=== PATIENT | female | born 1960 | race Caucasian/White ===

== ENCOUNTER → 2021-02-18 | Day surgery (SDC) | payer BC ==
[2021-02-17 13:33] LABS: ANION GAP 18.1 mmol/L (8-16); CALCIUM 9.5 mg/dL (8.4-10.2); CREATININE, SERUM 1.32 mg/dL (0.57-1.11); POTASSIUM 4.1 mmol/L (3.5-5.1)
[~2021-02-18] MED LIST: BENAZEPRIL-HCT1 EAC2 PO; BUPIVACAINE HCL 0.5% INJ 30 ML VIAL INJ ONE; BUPROPION XL150 MG PO; DEXAMETHASONE SOD PHOS INJ 4 MG/ML VIAL ONE; EPHEDRINE SULFATE INJ 50 MG/ML VIAL ONE; FAMOTIDINE 20 MG/2 ML VIAL IV ONE; FENOFIBRATE145 MG PO; FENTANYL CITRATE/PF 100MCG/2 ML INJ ONE; KETOROLAC TROMETHAMINE 30 MG/ML VIAL ONE; LIDOCAINE HCL 2% LOCAL INJ 5 ML SDV VIAL INJ ONE; METOCLOPRAMIDE HCL 10 MG/2ML VIAL ONE; MIDAZOLAM HCL 2 MG/2 ML VIAL ONE; ONDANSETRON HCL INJ 2MG/ML 2ML 2 MG/ML VIAL ONE; PHENYLEPHRINE HCL 1% 10 MG/ML VIAL ONE; POVIDONE IODINE 0.05% 0.05 % ML PO ONE; PROPOFOL IV EMULSION 10 MG/ML 20 ML VIAL ONE; SEVOFLURANE INHAL SOLN 250 ML PEN BTL ONE; SODIUM CHLORIDE 0.9% 50ML 50 ML ONE
[2021-02-18 10:05] VITALS: BP 132/70
== END | disposition home or self-care (01) ==
LOC: OR 05:52
PROVIDERS: ATTEND Podiatrist Foot & Ankle Surgery
DX: S92.352A Displaced fracture of fifth metatarsal bone, left foot, initial encounter for closed fracture (principal); Z88.5 Allergy status to narcotic agent; Z88.8 Allergy status to other drugs, medicaments and biological substances; Z01.810 Encounter for preprocedural cardiovascular examination; Z01.812 Encounter for preprocedural laboratory examination; I10 Essential (primary) hypertension; E78.5 Hyperlipidemia, unspecified; Z86.16 Personal history of COVID-19
CPT/HCPCS: 28485; 36415; 80048; 93005; J0690; J1100; J1885; J2001; J2250; J2370; J2405; J2704; J2765; J3010

== ENCOUNTER → 2021-04-01 | Outpatient (CLI) | payer BC ==
[~2021-04-01] MED LIST changes: -BUPIVACAINE HCL 0.5% INJ 30 ML VIAL INJ ONE; -DEXAMETHASONE SOD PHOS INJ 4 MG/ML VIAL ONE; -EPHEDRINE SULFATE INJ 50 MG/ML VIAL ONE; -FAMOTIDINE 20 MG/2 ML VIAL IV ONE; -FENTANYL CITRATE/PF 100MCG/2 ML INJ ONE; -KETOROLAC TROMETHAMINE 30 MG/ML VIAL ONE; -LIDOCAINE HCL 2% LOCAL INJ 5 ML SDV VIAL INJ ONE; -METOCLOPRAMIDE HCL 10 MG/2ML VIAL ONE; -MIDAZOLAM HCL 2 MG/2 ML VIAL ONE; -ONDANSETRON HCL INJ 2MG/ML 2ML 2 MG/ML VIAL ONE; -PHENYLEPHRINE HCL 1% 10 MG/ML VIAL ONE; -POVIDONE IODINE 0.05% 0.05 % ML PO ONE; -PROPOFOL IV EMULSION 10 MG/ML 20 ML VIAL ONE; -SEVOFLURANE INHAL SOLN 250 ML PEN BTL ONE; -SODIUM CHLORIDE 0.9% 50ML 50 ML ONE
== END ==
LOC: RAD 13:53
PROVIDERS: ATTEND Podiatrist Foot & Ankle Surgery
DX: I82.412 Acute embolism and thrombosis of left femoral vein (principal); I82.432 Acute embolism and thrombosis of left popliteal vein; I82.442 Acute embolism and thrombosis of left tibial vein
CPT/HCPCS: 93971

== ENCOUNTER 2022-04-04 11:21 | Inpatient (IN) | payer BC ==
[~2022-04-04] VITALS: Ht 170.2 cm; Wt 100.9 kg
[2022-04-04] MEDS ORDERED: SODIUM CHLORIDE 0.9% 1000ML 1,000 ML IV STA (12:04)
[2022-04-04 12:36] LABS: BASOPHILS # (AUTO) 0.1 (0.0-0.1); BASOPHILS % 0.5 % (0.0-1.0); EOSINOPHILS # (AUTO) 0.2 (0.0-0.4); EOSINOPHILS % 1.6 % (0.0-6.0); HEMATOCRIT 30.8 % (34.2-44.1); HEMOGLOBIN 9.6 g/dL (12.0-16.0); LYMPHOCYTES # (AUTO) 2.4 (1.0-3.2); LYMPHOCYTES % 15.5 % (18.0-39.1); MEAN CORPUSCULAR HEMOGLOBIN 26.6 pg (28-32); MEAN CORPUSCULAR HGB CONC 31.2 g/dL (31-35); MEAN CORPUSCULAR VOLUME 85.3 fL (81-99); MONOCYTES # (AUTO) 0.8 (0.2-0.8); MONOCYTES % 5.4 % (4.4-11.3); NEUTROPHILS # (AUTO) 11.6 (2.1-6.9); NEUTROPHILS % 76.6 % (38.7-80.0); PLATELET COUNT 717 x10e3/uL (140-360); RED BLOOD COUNT 3.61 x10e6/uL (3.6-5.1); RED CELL DISTRIBUTION WIDTH 13.9 % (11.7-14.4)
[2022-04-04 12:47] LABS: CLARITY,URINE CLEAR (CLEAR); COLOR,URINE YELLOW (YELLOW); KETONES,URINE NEGATIVE (NEGATIVE); LEUKOCYTE ESTERASE ,URINE NEGATIVE (NEGATIVE); NITRITE,URINE NEGATIVE (NEGATIVE); PROTEIN,URINE DIPSTICK NEGATIVE (NEGATIVE); URINE UROBILINOGEN 0.2 mg/dL (0.2 - 1)
[2022-04-04 12:48] LABS: INR 1.03; PROTHROMBIN TIME 14.4 seconds (11.9-14.5)
[2022-04-04 12:49] LABS: PARTIAL THROMBOPLASTIN TIME 36.8 seconds (23.8-35.5)
[2022-04-04 12:53] LABS: BACTERIA,URINE MODERATE /HPF; EPITHELIAL CELLS,URINE FEW /LPF
[2022-04-04 12:56] LABS: ALANINE AMINOTRANSFERASE 17 IU/L (0-55); ALBUMIN 2.9 g/dL (3.5-5.0); ALBUMIN/GLOBULIN RATIO 0.6 (0.8-2.0); ALKALINE PHOSPHATASE 90 IU/L (40-150); ANION GAP 19.3 mmol/L (8-16); BLOOD UREA NITROGEN 23 mg/dL (7-26); BUN/CREATININE RATIO 17 (6-25); CALCIUM 9.3 mg/dL (8.4-10.2); CARBON DIOXIDE 23 mmol/L (22-29); CHLORIDE 98 mmol/L (98-107); CREATINE KINASE 44 IU/L (29-168); CREATININE, SERUM 1.37 mg/dL (0.57-1.11); GLUCOSE 109 mg/dL (74-118); LIPASE 26 U/L (8-78); MAGNESIUM 2.1 MG/DL (1.3-2.1); POTASSIUM 3.3 mmol/L (3.5-5.1); SODIUM 137 mmol/L (136-145)
[2022-04-04 13:16] LABS: THYROID STIMULATING HORMONE 0.704 uIU/mL (0.350-4.940)
[2022-04-04] MEDS ORDERED: IOPAMIDOL 300MG/ML 100 ML INFUS..BTL IV ONE (13:20)
[2022-04-04] MEDS: D5NS/KCL 20MEQ 1,000 ML IV SCH (18:15)
[2022-04-04] MEDS ORDERED: Morphine 4mg INJECTION 4 MG/ML INJ IV PRN (18:15)
[2022-04-04] MEDS ORDERED: ONDANSETRON HCL INJ 2MG/ML 2ML 2 MG/ML VIAL IV PRN (18:15)
[2022-04-04 22:10] VITALS: BP 139/67
[2022-04-04 22:35] VITALS: BP 139/67
[2022-04-04] MEDS: ACETAMINOPHEN 325 MG TAB PO PRN (23:29)
[2022-04-05] VITALS (9 sets, daily range): BP systolic 124–149; BP diastolic 66–76
[2022-04-05 01:05] LABS: TOTAL IRON BINDING CAPACITY 335 ug/dL (261-478); TRANSFERRIN 239 mg/dL (180-382)
[2022-04-05 01:28] LABS: % IRON SATURATION 1 % (15-50); IRON < 5 ug/dL (50-170)
[2022-04-05 05:40] LABS: BASOPHILS # (AUTO) 0.1 (0.0-0.1); BASOPHILS % 0.7 % (0.0-1.0); EOSINOPHILS # (AUTO) 0.3 (0.0-0.4); HEMATOCRIT 27.2 % (34.2-44.1); HEMOGLOBIN 8.7 g/dL (12.0-16.0); LYMPHOCYTES # (AUTO) 2.5 (1.0-3.2); LYMPHOCYTES % 18.5 % (18.0-39.1); MEAN CORPUSCULAR HEMOGLOBIN 26.5 pg (28-32); MEAN CORPUSCULAR VOLUME 82.9 fL (81-99); MONOCYTES % 7.6 % (4.4-11.3); NEUTROPHILS # (AUTO) 9.3 (2.1-6.9); NEUTROPHILS % 70.5 % (38.7-80.0); PLATELET COUNT 656 x10e3/uL (140-360); RED BLOOD COUNT 3.28 x10e6/uL (3.6-5.1)
[2022-04-05 06:24] LABS: ALBUMIN 2.4 g/dL (3.5-5.0); ALBUMIN/GLOBULIN RATIO 0.5 (0.8-2.0); ANION GAP 15.2 mmol/L (8-16); CALCIUM 8.6 mg/dL (8.4-10.2); CREATININE, SERUM 0.97 mg/dL (0.57-1.11); POTASSIUM 3.2 mmol/L (3.5-5.1)
[2022-04-05 06:52] LABS: CREATINE KINASE MB 0.6 ng/mL (0-5.0)
[2022-04-05] MEDS: D5NS/KCL 20MEQ 1,000 ML IV SCH (10:35)
[2022-04-05] MEDS: ACETAMINOPHEN 325 MG TAB PO PRN (11:44)
[2022-04-05 14:08] LABS: CREATINE KINASE 40 IU/L (29-168)
[2022-04-05] MEDS ORDERED: PEG (High)/E-LYTE SOLN 4,000 ML BTL PO ONE (15:40)
[2022-04-05 20:30] LABS: CREATINE KINASE MB 0.5 ng/mL (0-5.0)
[2022-04-05] MEDS ORDERED: BISACODYL 5 MG TAB EC PO ONE ×2 (23:15→23:50)
[2022-04-06] VITALS (8 sets, daily range): BP systolic 129–152; BP diastolic 61–81
[2022-04-06] MEDS: ACETAMINOPHEN 325 MG TAB PO PRN (06:55)
[2022-04-06] MEDS ORDERED: IRON SUCROSE 100 MG in SODIUM CHLORIDE 0.9% 100 ML IV SCH (09:00)
[2022-04-06 11:53] LABS: ANION GAP 17.5 mmol/L (8-16); CALCIUM 8.8 mg/dL (8.4-10.2); CREATININE, SERUM 0.83 mg/dL (0.57-1.11); POTASSIUM 3.5 mmol/L (3.5-5.1)
[2022-04-06] MEDS ORDERED: PROPOFOL IV EMULSION 10 MG/ML 20 ML VIAL ONE (13:14)
[2022-04-06] MEDS ORDERED: GLUCAGON FOR INJ 1 MG VIAL ONE (13:14)
[2022-04-06] MEDS ORDERED: HYOSCYAMINE SULFATE 0.5 MG/ML INJ ONE (13:14)
[2022-04-06] MEDS ORDERED: METOCLOPRAMIDE HCL 10 MG/2ML VIAL ONE (13:14)
[2022-04-06] MEDS ORDERED: MIDAZOLAM HCL 2 MG/2 ML VIAL ONE (13:34)
[2022-04-06] MEDS ORDERED: FENTANYL CITRATE/PF 100MCG/2 ML INJ ONE (13:34)
[2022-04-07 04:00] VITALS: BP 138/69
[2022-04-07 08:35] VITALS: BP 138/80
[2022-04-07] MEDS ORDERED: ONDANSETRON HCL 4 MG ORAL DISINTEGRATING TAB PO PRN (08:45)
[2022-04-07] MEDS ORDERED: PANTOPRAZOLE SOD 40 MG TABEC PO SCH (09:00)
[2022-04-07 09:20] VITALS: BP 138/80
[2022-04-07 11:58] LABS: BASOPHILS # (AUTO) 0.1 (0.0-0.1); BASOPHILS % 0.6 % (0.0-1.0); EOSINOPHILS # (AUTO) 0.3 (0.0-0.4); EOSINOPHILS % 1.8 % (0.0-6.0); HEMATOCRIT 30.7 % (34.2-44.1); HEMOGLOBIN 9.3 g/dL (12.0-16.0); LYMPHOCYTES # (AUTO) 2.8 (1.0-3.2); LYMPHOCYTES % 17.1 % (18.0-39.1); MEAN CORPUSCULAR HEMOGLOBIN 26.5 pg (28-32); MEAN CORPUSCULAR HGB CONC 30.3 g/dL (31-35); MEAN CORPUSCULAR VOLUME 87.5 fL (81-99); MONOCYTES # (AUTO) 0.9 (0.2-0.8); MONOCYTES % 5.5 % (4.4-11.3); NEUTROPHILS # (AUTO) 12.1 (2.1-6.9); NEUTROPHILS % 74.5 % (38.7-80.0); PLATELET COUNT 635 x10e3/uL (140-360); RED BLOOD COUNT 3.51 x10e6/uL (3.6-5.1); RED CELL DISTRIBUTION WIDTH 14.2 % (11.7-14.4)
[2022-04-07 12:00] VITALS: BP 130/93
== END 2022-04-07 13:10 | disposition home or self-care (01) | DRG 641 ==
LOC: ER 11:44 → ERHOLD 18:14 → MED/SURG3 22:15
PROC: 0DBN8ZZ Excision of Sigmoid Colon, Via Natural or Artificial Opening Endoscopic (ICD-10-PCS; 2022-04-06)
PROC: 0DB98ZX Excision of Duodenum, Via Natural or Artificial Opening Endoscopic, Diagnostic (ICD-10-PCS; principal; 2022-04-06 13:19)
PROC: 0DB78ZX Excision of Stomach, Pylorus, Via Natural or Artificial Opening Endoscopic, Diagnostic (ICD-10-PCS; 2022-04-06 13:19)
PROC: 0DB68ZX Excision of Stomach, Via Natural or Artificial Opening Endoscopic, Diagnostic (ICD-10-PCS; 2022-04-06 13:19)
DX: E86.0 Dehydration (principal); K29.70 Gastritis, unspecified, without bleeding; K31.7 Polyp of stomach and duodenum; D50.9 Iron deficiency anemia, unspecified; K20.90 Esophagitis, unspecified without bleeding; K63.5 Polyp of colon; K64.8 Other hemorrhoids; I10 Essential (primary) hypertension; E78.5 Hyperlipidemia, unspecified; Z86.718 Personal history of other venous thrombosis and embolism; Z79.01 Long term (current) use of anticoagulants; Z86.711 Personal history of pulmonary embolism; K21.9 Gastro-esophageal reflux disease without esophagitis; R91.8 Other nonspecific abnormal finding of lung field; F32.9 Major depressive disorder, single episode, unspecified; Z20.822 Contact with and (suspected) exposure to COVID-19; R11.2 Nausea with vomiting, unspecified
CPT/HCPCS: 36415; 43239; 45378; 45380; 71045; 71250; 74177; 80048; 80053; 81001; 82550; 82553; 82607; 82746; 83540; 83690; 83735; 84443; 84466; 84484; 85025; 85045; 85610; 85730; 87086; 88305; 88312; 88342; 93005; 99284; J1610; J1756; J1980; J2250; J2405; J2765; J3010; J7030; J7050; Q9967

== ENCOUNTER → 2022-04-21 | Outpatient (CLI) | payer BC ==
[~2022-04-21] MED LIST changes: +FENTANYL CITRATE/PF 100MCG/2 ML INJ ONE; +MIDAZOLAM HCL 2 MG/2 ML VIAL ONE; +SODIUM CHLORIDE 0.9% 250ML 250 ML ONE
[2022-04-21 10:46] LABS: BASOPHILS # (AUTO) 0.1 (0.0-0.1); BASOPHILS % 0.6 % (0.0-1.0); EOSINOPHILS # (AUTO) 0.1 (0.0-0.4); EOSINOPHILS % 0.8 % (0.0-6.0); HEMATOCRIT 34.8 % (34.2-44.1); HEMOGLOBIN 10.4 g/dL (12.0-16.0); LYMPHOCYTES # (AUTO) 2.9 (1.0-3.2); LYMPHOCYTES % 16.7 % (18.0-39.1); MEAN CORPUSCULAR HEMOGLOBIN 26.3 pg (28-32); MEAN CORPUSCULAR HGB CONC 29.9 g/dL (31-35); MEAN CORPUSCULAR VOLUME 88.1 fL (81-99); MONOCYTES # (AUTO) 0.8 (0.2-0.8); MONOCYTES % 4.4 % (4.4-11.3); NEUTROPHILS # (AUTO) 13.4 (2.1-6.9); NEUTROPHILS % 77.2 % (38.7-80.0); PLATELET COUNT 585 x10e3/uL (140-360); RED BLOOD COUNT 3.95 x10e6/uL (3.6-5.1); RED CELL DISTRIBUTION WIDTH 14.7 % (11.7-14.4)
[2022-04-21 11:06] LABS: INR 1.07; PROTHROMBIN TIME 14.9 seconds (11.9-14.5)
[2022-04-21 11:07] LABS: PARTIAL THROMBOPLASTIN TIME 34.1 seconds (23.8-35.5)
== END ==
LOC: CT 10:03
DX: R91.8 Other nonspecific abnormal finding of lung field (principal)
CPT/HCPCS: 32408; 36415; 71045; 77012; 85025; 85610; 85730; 88304; J2250; J3010; J7050; 88305; 88342

== ENCOUNTER 2024-05-10 17:00 | Outpatient (RCR) | payer BC ==
[~2024-05-10 17:00] MED LIST changes: -FENTANYL CITRATE/PF 100MCG/2 ML INJ ONE; -MIDAZOLAM HCL 2 MG/2 ML VIAL ONE; -SODIUM CHLORIDE 0.9% 250ML 250 ML ONE
== END 2024-05-14 ==
LOC: PT 17:00
PROVIDERS: ATTEND Family Medicine Adult Medicine
DX: M54.2 Cervicalgia (principal); M53.82 Other specified dorsopathies, cervical region; M62.81 Muscle weakness (generalized)